=== PATIENT | female | born 1965 | race African-American/Black ===

== ENCOUNTER 2021-06-11 07:19 | Emergency (ER) | payer MEDICAID ==
[~2021-06-11] VITALS: Ht 162.6 cm; Wt 107.5 kg
[2021-06-11 07:45] VITALS: BP 147/88
== END 2021-06-11 08:17 | disposition home or self-care (01) ==
LOC: ER 07:19
DX: M54.16 Radiculopathy, lumbar region (principal); F12.10 Cannabis abuse, uncomplicated

== ENCOUNTER 2025-04-26 07:59 | Emergency (ER) | payer MEDICAID ==
[~2025-04-26] VITALS: Ht 165.1 cm; Wt 100.8 kg
--- NOTE | 2025-04-26 09:23 | ED.PDOC ---
Musculoskeletal HPI Comments 59 year old female who is right hand dominant presents to the ED for the c/c of Left Thumb pain. Pt states that her pain started around 5x days ago but has worsened today with no alleviating factors at this time. Pt states that her Left thumb pain radiates down her thumb into the palm of her hand. Pain is worsened the interphalangeal joint. Unable to bend the joint at this time due to pain. Denies fevers chills nausea vomiting diarrhea or drainage from the affected side Chief Complaint: Upper Extremity Time Seen by MD: 09:17 Primary Care Provider: SEBASTIEN Reviewed Notes: Nurses Notes, Medications, Allergies Allergies: Coded Allergies: NO KNOWN ALLERGIES (Unverified , 06/11/21) Home Meds No Active Prescriptions or Reported Meds Information Source: Patient Mode of Arrival: Ambulatory Location: Left Extremity Location: Hand Timing: Days Prehospital treatment: None Severity: Moderate Able to Move Extremity: Yes Bear Weight: Fully Pain: Moderate Hand Dominance: Right Mechanism: Spontaneous Circumstances: Spontaneous Onset of Symptoms: Spontaneous Symptoms: Swelling, Pain, Erythema DVT Risk Factors: NONE Associated signs and symptoms: Swelling Past Medical History PAST MEDICAL HISTORY: Denies Surgical History: Denies all surgeries FARM HAND History: No Pertinent FARM HAND History Family History Family History: No family hx of DM Social History Smoker: Non-Smoker Alcohol: Rarely Drugs: Marijuana Lives In: Home Constitutional: denies: chills, diaphoresis, fatigue, fever, malaise, sweats, weakness, others EENTM: denies: blurred vision, double vision, ear bleeding, ear discharge, ear drainage, ear pain, ear ringing, eye pain, eye redness, hearing loss, mouth pain, mouth swelling, nasal discharge, nose bleeding, nose congestion, nose pain, photophobia, tearing, throat pain, throat swelling, voice changes, others Respiratory: denies: cough, hemoptysis, orthopnea, SOB at rest, shortness of breath, SOB with excertion, stridor, wheezing, others Cardiovascular: denies: chest pain, dizzy spells, diaphoresis, Dyspnea on exertion, edema, irregular heart beat, left arm pain, lightheadedness, palpitations, PND, syncope, others Gastrointestinal: denies: abdomen distended, abdominal pain, blood streaked bowels, constipated, diarrhea, dysphagia, difficulty swallowing, hematemesis, melena, nausea, poor appetite, poor fluid intake, rectal bleeding, rectal pain, vomiting, others Genitourinary: denies: abnormal vagina bleeding, burning, dyspareunia, dysuria, flank pain, frequency, hematuria, incontinence, pain, , vagina discharge, urgency, others Neurological: denies: dizziness, fainting, headache, left sided numbness, left sided weakness, numbness, paresthesia, pre-existing deficit, right sided numbness, right sided weakness, seizure, speech problems, tingling, tremors, weakness, others Musculoskeletal: denies: back pain, gout, joint pain, joint swelling, muscle pain, muscle stiffness, neck pain, others Integumetry: denies: bruises, change in color, change in hair/nails, dryness, laceration, lesions, lumps, rash, wounds, others Allergic/Immunocompromised: denies: Difficulty Healing, Frequent Infections, Hives, Itching, others Hematologic/Lymphatic: denies: anemia, blood clots, easy bleeding, easy bruising, swollen glands, others Endocrine: denies: excessive hunger, excessive sweating, excessive thirst, excessive urination, flushing, intolerance to cold, intolerance to heat, unexplained weight gain, unexplained weight loss, others Psychiatric: denies: anxiety, bipolar disorder, depression, hopeless, panic disorder, schizophrenia, sleepless, suicidal, others All Other Systems: Reviewed and Negative Physical Exam General Appearance: No Apparent Distress, Normal, Obese HEENT: Normal ENT Inspection, TMs Normal Neck: Full Range of Motion, Non-Tender, Normal Respiratory: Chest Non-Tender, Lungs Clear, No Accessory Muscle Use Cardiovascular: No Edema, No JVD, Normal Peripheral Pulses Breast Exam: Deferred Gastrointestinal: Non Tender, No Pulsatile Mass, Soft Genitalia: Deferred Pelvic: Deferred Rectal: Deferred Extremities: Inflammation, No calf tenderness, Normal capillary refill, Normal inspection, Normal range of motion, Non-tender, No pedal edema, Swelling, Tender, Other Musculoskeletal : Location: Left Extremity Location: Thumb (1/2 cm abrasion on voler aspect of hand, normal ROM of the wirst. Noted that there is swelling, Redness , and small abrasion to the interphalangeal joint. No drainage noted or crepitus on palpation. ) Apperance: Normal Neurologic: Alert, No Motor Deficits, Normal Mood Cerebellar Function: Normal Reflexes: Normal Skin: Dry, Normal Color, Warm Lymphatic: No Adenopathy Was a procedure done? Was a procedure done?: No Differential Diagnosis EXT Differential Diagnosis: Cellulitis, Fracture, Sprain X-Ray, Labs, Meds, VS Vital Signs Date Time Temp Pulse Resp B/P (MAP) Pulse Ox O2 Delivery O2 Flow Rate FiO2 04/26/25 12:22 98.2 04/26/25 11:02 98.1 04/26/25 08:51 88 16 98 Room Air 04/26/25 08:51 98.4 88 16 122/62 (82) 99 98.4 04/26/25 08:22 98.6 83 20 125/57 (79) 98 98.6 Lab Test 04/26/25 09:54 04/26/25 09:29 Range/Units White Blood Count 8.8 4.4-10.8 10^3/uL Red Blood Count 5.12 4.0-5.20 10^6/uL Hemoglobin 14.8 12.2-16.2 g/dL Hematocrit 44.0 36.0-46.0 % Mean Corpuscular Volume 85.9 80.0-100.0 fL Mean Corpuscular Hemoglobin 29.0 28.0-32.0 pg Mean Corpuscular Hemoglobin Concent 33.7 32.0-36.0 g/dL Red Cell Distribution Width 13.6 11.8-14.3 % Platelet Count 65 L 140-450 10^3/uL Mean Platelet Volume 13.8 H 6.9-10.8 fL Neutrophils (%) (Auto) 81.7 H 37.0-80.0 % Lymphocytes (%) (Auto) 12.4 10.0-50.0 % Monocytes (%) (Auto) 5.4 0.0-12.0 % Eosinophils (%) (Auto) 0.2 0.0-7.0 % Basophils (%) (Auto) 0.3 0.0-2.0 % Neutrophils # (Auto) 7.2 1.6-8.6 10 ^3/uL Lymphocytes # (Auto) 1.1 0.4-5.4 10 ^3/uL Monocytes # (Auto) 0.5 0-1.3 10 ^3/uL Eosinophils # (Auto) 0 0-0.8 10 ^3/uL Basophils # (Auto) 0 0-0.2 10 ^3/uL Nucleated Red Blood Cells 0.1 % Platelet Estimate Decreased Sodium Level 138 136-145 mmol/L Potassium Level 4.6 3.5-5.1 mmol/L Chloride Level 103 98-107 mmol/L Carbon Dioxide Level 26 20-31 mmol/L Anion Gap 9 5-15 Blood Urea Nitrogen 18 9-23 mg/dL Creatinine 0.83 0.550-1.02 mg/dL Glomerular Filtration Rate Calc 81 >90 mL/min BUN/Creatinine Ratio 21.7 H 10.0-20.0 Serum Glucose 115 H 74-106 mg/dL Calcium Level 10.2 8.7-10.4 mg/dL Current Medications Medications (Trade) Dose Ordered Sig/Shani Route Start Time Stop Time Status Last Admin Acetaminophen/ Hydrocodone Bitart ([place] 7.5/325MG Tab) 1 tab ONCE ONCE PO 04/26/25 11:00 04/26/25 11:01 DC 04/26/25 11:03 Ibuprofen (Motrin Tablet) 600 mg ONCE ONCE PO 04/26/25 11:00 04/26/25 11:01 DC 04/26/25 11:02 Ceftriaxone Sodium 50 ml @ 100 mls/hr ONCE ONCE IV 04/26/25 12:45 04/26/25 13:14 DC 04/26/25 13:17 PATIENT: ROGERS CROW ACCT: [id number] UNIT: [id number] : 1965 LOC: ER ROOM / BED: / AGE / SEX: 59 / F ADM STATUS: REG ER SERVICE [id number] ORDERING PHYSICIAN: GUSTAVO BOONE NP PROCEDURE(s): UECIR - LT UPPER EXTREMITY W CONTRAS REASON: unable to bend interphalangeal joint of the thumb. ORDER NUMBER(s): [id number], ACCESSION NUMBER(s): [id number] Procedure: CT LT UPPER EXTREMITY W CONTRAS 04/26/2025 11:11 AM Indication: unable to bend interphalangeal joint of the thumb. Comparison Study: None Technique: Axial images left hand were obtained and reformatted in coronal and sagittal planes. All CT scans at this medical facility are performed using dose modulation techniques as appropriate to a performed exam including the foll owing: Automated exposure control was utilized; adjustment of the MA and/or KV according to patient size; and use of iterative reconstruction technique. CT Dose: CTDI volume is 7.8 mGy. Dose-length product is 703 mGy*cm FINDINGS: A 1.8 x 0.4 x 0.6 cm elongated fluid collection is seen on the volar aspect of the thumb at the level of distal interphalangeal joint 1st proximal phalangeal head and neck. A subcentimeter corticated osseous density noted on the volar aspect of the 1st IP joint that , probably an ossicle but an age-indeterminate avulsion fracture can not be ruled out. No joint effusion is identified. Moderate subcutaneous edema in the thenar region on the volar aspect of the thumb. IMPRESSION: 1. Findings suggestive of torn and retracted flexor pollicis longus tendon from its distal phalangeal insertion, retracted to the level of proximal phalangeal mid shaft. A 1.8 x 0.6 cm fluid collection is seen in the expected location of the tendon at the level of the 1st IP joint proximal phalangeal head that may represent fluid in the tendon sheath versus hematoma, seroma or abscess. Moderate volar subcutaneous edema in the thumb and thenar region noted. Recommend clinical and biochemical correlation an orthopedic consultation. These findings can be better evaluated by MRI without and with IV contrast if clinically indicated. X-Ray, Labs, Meds, VS Comment 59 year old female who is right hand dominant presents to the ED for the c/c of Left Thumb pain. Patient arrives alert and oriented, ABC's intact, afebrile, vital signs stable, saturating well in room air After ROS and physical examination, differentials considered but not limited to: Closed thumb fracture, cellulitis, septic joint, abscess formation, hand deep space infection Peripheral IV insertion+ labs were ordered. CBC was ordered to exclude anemia, blood loss, or infection. BMP was ordered to exclude electrolyte abnormalities, renal failure, dehydration, hyperglycemia Imaging ordered and results showed 1. Findings suggestive of torn and retracted flexor pollicis longus tendon from its distal phalangeal insertion, retracted to the level of proximal phalangeal mid shaft. A 1.8 x 0.6 cm fluid collection is seen in the expected location of the tendon at the level of the 1st IP joint proximal phalangeal head that may represent fluid in the tendon sheath versus hematoma, seroma or abscess. Moderate volar subcutaneous edema in the thumb and thenar region noted. Recommend clinical and biochemical correlation an orthopedic consultation. These findings can be better evaluated by MRI without and with IV contrast if clinically indicated. Patient was given Rocephin x1. Patient was also given ibuprofen and [place] for her pain Tolerated medications with no adverse reaction. Labs in the ED showed no significant findings. Based on the findings above the patient will be transferred for higher level of care. Spoke with Dr. Fantasma HINOJOSA at 15:04. Case accepted Additional MDM Review of External, Non-ED records: External records reviewed. Discussion with independent historian (EMS, family) history obtained from the patient at bedside Chronic conditions affecting care: none Social determinants of health affecting care: none Time of 1ST Reevaluation: 09:47 Reevaluation 1ST: Unchanged Time of 2ND Reevaluation: 15:43 Reevaluation 2ND: Unchanged Patient Education/Counseling: Diagnosis, Treatment Family Education/Counseling: No Family Present Departure 1 Departure Time of Disposition: 15:48 Impression: Primary Impression: Abscess of thumb, left Additional Impression: Rupture of flexor pollicis longus tendon Disposition: 51 HOSPICE/MEDICAL FACILITY Condition: Serious e-Prescriptions No Active Prescriptions or Reported Meds Critical Care Note Critical Care Time?: No Stability Stability form required: No Heart Score Heart Score: Heart Score Response (Comments) Value History N/A 0 EKG N/A 0 Age N/A 0 Risk Factors N/A 0 Troponin N/A 0 Total 0 I personally scribed for GUSTAVO BOONE NP ([email or web address]) on 04/26/25 at 09:23. Electronically submitted by Ba Sharma ([email or web address]). I personally scribed for GUSTAVO BOONE NP ([email or web address]) on 04/26/25 at 12:40. Electronically submitted by Ba Sharma ([email or web address]). GUSTAVO BOONE NP April 26, 2025 09:23
[2025-04-26 09:50] LABS: Chloride 103 mmol/L (98-107); Potassium 4.6 mmol/L (3.5-5.1); Sodium 138 mmol/L (136-145)
[2025-04-26 09:52] LABS: Anion Gap 9 (5-15); Calcium 10.2 mg/dL (8.7-10.4); Carbon Dioxide 26 mmol/L (20-31)
[2025-04-26 09:57] LABS: BUN/Creatinine Ratio 21.7 (10.0-20.0); Blood Urea Nitrogen 18 mg/dL (9-23)
[2025-04-26 09:58] LABS: Glucose 115 mg/dL (74-106)
[2025-04-26] MEDS: IBUPROFEN 600 MG TAB PO ONE ×2 (11:02→16:20)
[2025-04-26] MEDS: HYDROcodone-ACET 7.5/325MG TAB PO ONE (11:03)
[2025-04-26 11:10] LABS: Basophils # (auto) 0 10 ^3/uL (0-0.2); Basophils % (auto) 0.3 % (0.0-2.0); Eosinophils # (auto) 0 10 ^3/uL (0-0.8); Eosinophils % (auto) 0.2 % (0.0-7.0); Hemoglobin 14.8 g/dL (12.2-16.2); Lymphocytes # (auto) 1.1 10 ^3/uL (0.4-5.4); Lymphocytes % (auto) 12.4 % (10.0-50.0); Mean Corpuscular Hgb Conc. 33.7 g/dL (32.0-36.0); Mean Corpuscular Volume 85.9 fL (80.0-100.0); Monocytes # (auto) 0.5 10 ^3/uL (0-1.3); Monocytes % (auto) 5.4 % (0.0-12.0); Neutrophils # (auto) 7.2 10 ^3/uL (1.6-8.6); Neutrophils % (auto) 81.7 % (37.0-80.0); Nucleated Red Blood Cells % 0.1 %; Red Blood Cells 5.12 10^6/uL (4.0-5.20); Red Cell Distribution Width 13.6 % (11.8-14.3); White Blood Cell 8.8 10^3/uL (4.4-10.8)
--- NOTE | 2025-04-26 12:16 | DVH ---
Procedure: CT LT UPPER EXTREMITY W CONTRAS 04/26/2025 11:11 AM Indication: unable to bend interphalangeal joint of the thumb. Comparison Study: None Technique: Axial images left hand were obtained and reformatted in coronal and sagittal planes. All C T scans at this medical facility are performed using dose modulation techniques as appropriate to a p erformed exam including the following: Automated exposure control was utilized; adjustment of the MA and/or KV according to patient size; and use of iterative reconstruction technique. CT Dose: CTDI vol ume is 7.8 mGy. Dose-length product is 703 mGy*cm FINDINGS: A 1.8 x 0.4 x 0.6 cm elongated fluid collection is seen on the volar aspect of the thumb at the level of distal interphalangeal joint 1st proximal phalangeal head and neck. A subcentimeter corticated o sseous density noted on the volar aspect of the 1st IP joint that , probably an ossicle but an age-in determinate avulsion fracture can not be ruled out. No joint effusion is identified. Moderate subcuta neous edema in the thenar region on the volar aspect of the thumb. IMPRESSION: 1. Findings suggestive of torn and retracted flexor pollicis longus tendon from its distal phalangeal insertion, retracted to the level of proximal phalangeal mid shaft. A 1.8 x 0.6 cm fluid collection is seen in the expected location of the tendon at the level of the 1st IP joint proximal phalangeal head that may represent fluid in the tendon sheath versus hematoma, seroma or abscess. Moderate volar subcutaneous edema in the thumb and thenar region noted. Recommend clinical and biochemical correla tion an orthopedic consultation. These findings can be better evaluated by MRI without and with IV c ontrast if clinically indicated.
[2025-04-26] MEDS: IOHEXOL 300 MG/ML 100ML BOTTLE IJ ONE (12:22)
[2025-04-26 12:28] LABS: Platelet Count (auto) 65 10^3/uL (140-450); Platelet Estimate Decreased
[2025-04-26] MEDS: cefTRIAXone 1GM/50ML D5W 50 ML IV ONE (13:17)
[2025-04-26 15:50] VITALS: BP 133/106; PULSE 80; RESP 16; O2SAT 100
[2025-04-26 16:20] VITALS: TEMP 98.3
[2025-04-26] MEDS: HYDROcodone-ACET 5/325MG TAB PO ONE (16:21)
== END 2025-04-26 15:56 | disposition short-term general hospital (02) ==
LOC: ER 07:59
DX: S56.012A Strain of flexor muscle, fascia and tendon of left thumb at forearm level, initial encounter (principal); L02.512 Cutaneous abscess of left hand; X58.XXXA Exposure to other specified factors, initial encounter; Y93.89 Activity, other specified; Y92.89 Other specified places as the place of occurrence of the external cause; Y99.8 Other external cause status
CPT/HCPCS: 36415; 73201; 80048; 85025; 96365; 96366; 99285; J0696; Q9967